=== PATIENT | female | born 1985 | race African-American/Black ===

== ENCOUNTER 2021-11-07 19:31 | Inpatient (IN) | payer OTHER ==
[~2021-11-07] VITALS: Ht 180.3 cm; Wt 66.7 kg
[2021-11-07 20:53] LABS: HEMOGLOBIN 8.7 gm/dl (12.3-15.3); WHITE BLOOD COUNT 9.6 K/UL (4.5-11.0)
[2021-11-07 21:45] LABS: BUN/CREATININE RATIO 9 (0-10)
[2021-11-08 03:21] LABS: HEMOGLOBIN 7.9 gm/dl (12.3-15.3); RED BLOOD COUNT 3.67 M/UL (4.00-5.10); WHITE BLOOD COUNT 9.6 K/UL (4.5-11.0)
[2021-11-09 06:13] LABS: RED BLOOD COUNT 3.89 M/UL (4.00-5.10); WHITE BLOOD COUNT 7.2 K/UL (4.5-11.0)
[2021-11-09 07:19] LABS: BUN/CREATININE RATIO 11 (0-10)
[2021-11-09 10:51] LABS: BUN/CREATININE RATIO 10 (0-10)
[2021-11-10 04:36] LABS: HEMOGLOBIN 8.4 gm/dl (12.3-15.3); RED BLOOD COUNT 3.95 M/UL (4.00-5.10); WHITE BLOOD COUNT 6.8 K/UL (4.5-11.0)
[2021-11-10 05:01] LABS: BUN/CREATININE RATIO 11 (0-10)
[2021-11-11 04:49] LABS: HEMOGLOBIN 8.9 gm/dl (12.3-15.3); RED BLOOD COUNT 4.15 M/UL (4.00-5.10); WHITE BLOOD COUNT 7.9 K/UL (4.5-11.0)
[2021-11-11 05:25] LABS: BUN/CREATININE RATIO 11 (0-10)
[2021-11-12 04:43] LABS: HEMOGLOBIN 9.7 gm/dl (12.3-15.3); RED BLOOD COUNT 4.42 M/UL (4.00-5.10)
[2021-11-12 04:47] LABS: WHITE BLOOD COUNT 10.1 K/UL (4.5-11.0)
[2021-11-12 05:49] LABS: BUN/CREATININE RATIO 15 (0-10)
[2021-11-13 04:53] LABS: HEMOGLOBIN 9.7 gm/dl (12.3-15.3); RED BLOOD COUNT 4.48 M/UL (4.00-5.10); WHITE BLOOD COUNT 10.4 K/UL (4.5-11.0)
[2021-11-13 05:13] LABS: BUN/CREATININE RATIO 23 (0-10)
[2021-11-13 15:11] LABS: BUN/CREATININE RATIO 28 (0-10)
[2021-11-14 04:41] LABS: HEMOGLOBIN 8.9 gm/dl (12.3-15.3); RED BLOOD COUNT 4.06 M/UL (4.00-5.10)
[2021-11-14 05:11] LABS: BUN/CREATININE RATIO 25 (0-10)
--- NOTE | 2021-11-16 00:28 | NUR ---
PT NOTED TO HAVE A 5 BEAT RUN OF NSVT. NOTIFIED DR BUCK NO NEW ORDERS AT THIS TIME.
[2021-11-16 09:06] LABS: HEMOGLOBIN 9.8 gm/dl (12.3-15.3); RED BLOOD COUNT 4.46 M/UL (4.00-5.10); WHITE BLOOD COUNT 6.3 K/UL (4.5-11.0)
[2021-11-16 09:30] LABS: BUN/CREATININE RATIO 15 (0-10)
[2021-11-16] MEDS ORDERED: ATORVASTATIN CA20 MG PO (13:16)
[2021-11-16] MEDS ORDERED: METOPROLOL SUCC50 MG PO (13:16)
[2021-11-16] MEDS ORDERED: ASPIRIN EC81 MG PO (13:16)
[2021-11-16] MEDS ORDERED: LISINOPRIL5 MG PO (13:16)
[2021-11-16] MEDS ORDERED: PROTONIX 40 MG40 M1 PO (13:16)
[2021-11-16] MEDS ORDERED: AUGMENTIN 875-1 EACH PO (13:26)
[2021-11-16] MEDS ORDERED: LASIX20 MG PO (13:35)
[2021-11-16] MEDS ORDERED: POTASSIUM CHLO20 ME2 PO (13:38)
[2021-11-16] MEDS ORDERED: FERROUS FUMARA324 MG PO (13:42)
== END 2021-11-16 18:07 | disposition home or self-care (01) | DRG 207 ==
LOC: CCU 19:54 → PROG CARE 11-15 00:26
PROVIDERS: Internal Medicine; ADMIT Internal Medicine
PROC: 3E033XZ Introduction of Vasopressor into Peripheral Vein, Percutaneous Approach (ICD-10-PCS; principal; 2021-11-07)
PROC: 5A1955Z Respiratory Ventilation, Greater than 96 Consecutive Hours (ICD-10-PCS; 2021-11-07)
PROC: B24BZZZ Ultrasonography of Heart with Aorta (ICD-10-PCS; 2021-11-08)
PROC: 4A023N7 Measurement of Cardiac Sampling and Pressure, Left Heart, Percutaneous Approach (ICD-10-PCS; 2021-11-16)
PROC: B2111ZZ Fluoroscopy of Multiple Coronary Arteries using Low Osmolar Contrast (ICD-10-PCS; 2021-11-16)
PROC: B2151ZZ Fluoroscopy of Left Heart using Low Osmolar Contrast (ICD-10-PCS; 2021-11-16)
DX: J96.01 Acute respiratory failure with hypoxia (principal); A41.9 Sepsis, unspecified organism; Z20.822 Contact with and (suspected) exposure to COVID-19; R57.0 Cardiogenic shock; I50.23 Acute on chronic systolic (congestive) heart failure; K72.00 Acute and subacute hepatic failure without coma; J15.9 Unspecified bacterial pneumonia; R65.21 Severe sepsis with septic shock; G93.41 Metabolic encephalopathy; I46.8 Cardiac arrest due to other underlying condition; I47.1 Supraventricular tachycardia; I42.8 Other cardiomyopathies; E87.2 Acidosis; R57.9 Shock, unspecified; N17.9 Acute kidney failure, unspecified; I45.81 Long QT syndrome; D50.9 Iron deficiency anemia, unspecified; I08.1 Rheumatic disorders of both mitral and tricuspid valves; F19.10 Other psychoactive substance abuse, uncomplicated; E83.42 Hypomagnesemia; F15.10 Other stimulant abuse, uncomplicated; I27.20 Pulmonary hypertension, unspecified; Z79.82 Long term (current) use of aspirin; Z87.891 Personal history of nicotine dependence
CPT/HCPCS: ECHO; 36415; 36600; 71045; 71275; 76705; 80048; 80053; 80202; 80307; 81001; 82550; 82553; 82803; 83036; 83540; 83550; 83605; 83735; 83880; 84100; 84132; 84484; 85025; 85027; 85610; 85652; 86140; 86850; 86900; 86901; 87040; 87070; 87081; 87086; 87205; 92526; 92610; 93005; 93306; 94002; 94003; 94640; 94664; 94760; 97116-GP-CQ; 97162; 97530; 99152; C1769; C1894; C9113; J1335; J1644; J1650; J1756; J1940; J2060; J2185; J2250; J2370; J2405; J2704; J3010; J3370; J3475; J3480; J7030; J7040; J7050; J7070; Q9967